=== PATIENT | female | born 1970 | race Caucasian/White ===

== ENCOUNTER 2020-10-03 07:25 | Day surgery (SDC) | payer BC ==
[~2020-10-03] VITALS: Ht 162.6 cm; Wt 100.9 kg
[~2020-10-03 07:25] MED LIST: CYCLOBENZAPRINE5 MG PO; DAILY MULTIVIT1 EAC3 PO; LISINOPRIL20 MG PO; NORCO 5-325 TA1 EACH PO; PRAVASTATIN SOD40 MG PO; VALTREX500 MG PO; VITAMIN D3125 MC2 PO; ZOFRAN4 MG PO
[2020-10-03] MEDS ORDERED: TYLENOL325 MG PO (07:47)
--- NOTE | 2020-10-03 08:48 | NUR ---
10/03/20 0848 Michaela Ba 0844 PT TO PACU AWAKE AND ALERT DENIES PAIN ASKING FOR SOMETHING TO DRINK.
--- NOTE | 2020-10-03 14:21 | NUR ---
PT SITTING ON SIDE OF BED IN GOWN ALERT AND ORIENTED. SHE IS WAITING FOR UV PREP. HERE FOR HER FIRST SCOPE-"JUST ONE OF THOSE THINGS WE HAVE TO DO". PT THANKFUL SCOPE PREP IS OVER. ALL QUESTIONS ASKED ANSWERED. HUMBERTO HYDE IN TO CHECK PT IN. GAVE BLESSING, WILL FOLLOW
--- NOTE | 2020-10-04 07:31 | OR ---
[facility] [address] [place], [place] [address] Signed DATE OF OPERATION: 10/03/2020 SURGEON: Janeth Goel MD PREOPERATIVE DIAGNOSIS: Screening. POSTOPERATIVE DIAGNOSES: 1. Moderate external hemorrhoids. 2. Minimal internal hemorrhoids. 3. 3 mm polyps x3 at 10 cm. 4. 4 mm polyp at 22 cm (sigmoid). 5. 6 mm polyp at 18 cm (sigmoid). PROCEDURE: Colonoscopy with hot biopsy. ESTIMATED BLOOD LOSS: None. INDICATIONS: Adolph is a 49-year-old female, asked to see me for a screening colonoscopy. She has no lower GI complaints. She has never had a previous colonoscopy. There is no family history of colon cancer or polyps. In the office, I gave her a pamphlet on colonoscopy. She understands the nature of the test along with the risks including, but not limited to gas bloating, crampy abdominal pain, bleeding, perforation requiring surgery, and missed diagnosis. She also understands the need for IV conscious sedation. She had expressed understanding and wished to proceed. PROCEDURE NOTE: Adolph was taken into our endoscopy suite and placed in the left lateral decubitus position. She was given 7 mg of Versed and 150 mcg of fentanyl to cover the case. A digital rectal exam was performed. This revealed moderate circumferential external hemorrhoids. The adult colonoscope was introduced, advanced all around into the cecum under direct visualization of camera. It took some extra sedation and abdominal compression to get around the splenic flexure and then through the transverse colon and down into the cecum itself. We could easily see the appendiceal orifice and the ileocecal valve. Her prep was good. We had taken pictures throughout for photodocumentation. The scope was slowly withdrawn. The above-mentioned polyps were easily removed with the help of hot biopsy forceps. There was no diverticulosis. Upon Electronically Signed By: JANETH GOEL MD 10/04/20 0731 PATIENT NAME: ADOLPH PEMBERTON OPERATIVE REPORT DATE OF : 66 REPORT #: [id number] PHYSICIAN: JANETH GOEL MD PCP: MONTSERRAT MARKS REPORT IS CONFIDENTIAL AND NOT TO BE RELEASED WITHOUT AUTHORIZATION [facility] [address] [place], [place] [address] Signed retroflexion of scope, we could see just very small internal hemorrhoid columns. After this, the gas was suctioned out. The colonoscope removed. Adolph tolerated procedure quite well. RECOMMENDATIONS: I will see Adolph back in my office in 7 to 14 days to review her results. MD RORY Singh/MODL /[id number] cc: JOHANNE Mcneil MD Copies: MONTSERRAT MARKS ANDREW L MD ~ Electronically Signed By: JANETH GOEL MD 10/04/20 0731 PATIENT NAME: ADOLPH PEMBERTON OPERATIVE REPORT DATE OF : 66 REPORT #: [id number] PHYSICIAN: JANETH GOEL MD PCP: MONTSERRAT MARKS REPORT IS CONFIDENTIAL AND NOT TO BE RELEASED WITHOUT AUTHORIZATION
--- NOTE | 2020-10-04 13:18 | PATH ---
[facility] [address] [place], [place] [address] Signed SPECIMEN(S): A RECTAL POLYP SPECIMEN(S): B SIGMOID POLYP AT 22 CM SPECIMEN(S): C SIGMOID POLYP AT 18 CM SPECIMEN SOURCE: A. RECTAL POLYP B. SIGMOID POLYP AT 22 CM C. SIGMOID POLYP AT 18 CM CLINICAL HISTORY: Colon screening. MICROSCOPIC DESCRIPTION: Histologic sections of all submitted blocks are examined by light microscopy. These findings, together with the gross examination, support the pathologic diagnosis. FINAL PATHOLOGIC DIAGNOSIS: A. Rectum, polypectomy: - Hyperplastic polyp. B. Colon, sigmoid at 22 cm, polypectomy: - Hyperplastic polyp. C. Colon, sigmoid at 18 cm, polypectomy: - Hyperplastic polyp. BRP:cml:C2NR GROSS DESCRIPTION: Three specimens are received in three containers, labeled "CR." A. The specimen, labeled "CR, 1," and designated on the requisition "rectum polyp," is received in formalin and consists of five beaulieu soft tissue fragments that measure 0.2 to 0.3 cm in greatest dimension. The specimen is entirely submitted in cassette (A1). B. The specimen, labeled "CR, 2," and designated on the requisition "sigmoid polyp at 22 cm," is received in formalin and consists of two beaulieu soft tissue fragments that measure 0.2 to 0.4 cm in greatest dimension. The specimen is entirely submitted in cassette (B1). C. The specimen, labeled "CR, 3," and designated on the requisition "sigmoid polyp at 18 cm," is received in formalin and consists of four beaulieu soft tissue fragments that measure 0.3 to 0.4 cm in greatest dimension. The specimen is entirely submitted in cassette (C1). AT (under the direct supervision of a pathologist) PATIENT NAME: ADOLPH PEMBERTON PATHOLOGY DATE OF : 66 REPORT #: [id number] PHYSICIAN: YAMILETH PATHOLOGY PCP: MONTSERRAT MARKS REPORT IS CONFIDENTIAL AND NOT TO BE RELEASED WITHOUT AUTHORIZATION [facility] [address] [place], [place] [address] Signed The Gross Description was prepared using a voice recognition system. The report was reviewed for accuracy; however, sound-alike word errors, addition and/or deletions may occur. If there is any question about this report, please contact Client Services. PERFORMING LABORATORY: The technical component was performed by [facility] [address] (Staff Counselor: Sole Coppola MD; CLIA# [id number]). Professional interpretation was performed by [facility], [address] [address] (CLIA# [id number]). Diagnostician: Quinn Lua MD Pathologist Electronically Signed 10/04/2020 Copies: ~ PATIENT NAME: ADOLPH PEMBERTON PATHOLOGY DATE OF : 66 REPORT #: [id number] PHYSICIAN: YAMILETH IBRAHIM PCP: MONTSERRAT MARKS REPORT IS CONFIDENTIAL AND NOT TO BE RELEASED WITHOUT AUTHORIZATION
== END 2020-10-03 09:09 | disposition home or self-care (01) ==
LOC: DS 07:25 → OPS 07:25 → DS 09:00 → OPS 09:09
PROVIDERS: ATTEND Colon & Rectal Surgery
PROC: 0DBN8ZX Excision of Sigmoid Colon, Via Natural or Artificial Opening Endoscopic, Diagnostic (ICD-10-PCS; 2020-10-03)
PROC: 0DBP8ZX Excision of Rectum, Via Natural or Artificial Opening Endoscopic, Diagnostic (ICD-10-PCS; principal; 2020-10-03 09:00)
DX: Z12.11 Encounter for screening for malignant neoplasm of colon (principal); K63.5 Polyp of colon; I10 Essential (primary) hypertension; E11.9 Type 2 diabetes mellitus without complications; E78.5 Hyperlipidemia, unspecified; G47.33 Obstructive sleep apnea (adult) (pediatric); E55.9 Vitamin D deficiency, unspecified; K64.8 Other hemorrhoids; K64.4 Residual hemorrhoidal skin tags
CPT/HCPCS: 99153; G0500; J2250; J3010; J7121

== ENCOUNTER 2021-01-06 23:11 | Emergency (ER) | payer BC ==
[~2021-01-06] VITALS: Ht 162.6 cm; Wt 100.7 kg
[~2021-01-06 23:11] MED LIST changes: +TYLENOL325 MG PO
[2021-01-07] MEDS ORDERED: DILAUDID2 MG PO (01:14)
[2021-01-07] MEDS ORDERED: ONDANSETRON ODT8 MG PO (01:14)
[2021-01-07] MEDS ORDERED: FLOMAX0.4 MG PO (01:14)
== END 2021-01-07 01:45 | disposition home or self-care (01) ==
LOC: ED 23:11
DX: N13.2 Hydronephrosis with renal and ureteral calculous obstruction (principal); I10 Essential (primary) hypertension; E78.5 Hyperlipidemia, unspecified; Z88.5 Allergy status to narcotic agent; Z79.899 Other long term (current) drug therapy
CPT/HCPCS: 74176; 80053; 84703; 85025; 96374; 96375; 99284-25; J1170; J1885; J2405